=== PATIENT | male | born 1960 | race African-American/Black ===

== ENCOUNTER 2017-02-18 05:16 | Emergency (ER) | payer MEDICAID ==
[~2017-02-18] VITALS: Ht 185.4 cm; Wt 64.0 kg
[2017-02-18] MEDS ORDERED: MORPHINE SULFATE 4 MG/ML CPJ (NOT FOR IM USE) IV STA (07:01)
[2017-02-18] MEDS ORDERED: ONDANSETRON HCL 4MG/2ML VIAL IV STA ×2 (07:01→08:58)
[2017-02-18] MEDS ORDERED: SODIUM CHLORIDE 0.9% 1,000 ML IV ONE ×2 (07:01→08:58)
[2017-02-18 07:20] LABS: BASOPHILS % 0.5 % (0.0-2.0); LYMPHOCYTES % 12.6 % (20.0-50.0); MEAN CORPUSCULAR HEMOGLOBIN 31.4 pg (28.0-32.0); MEAN CORPUSCULAR VOLUME 90.4 fL (80.0-94.0); MEAN PLATELET VOLUME 7.1 fl (7.4-10.4); MONOCYTES % 4.8 % (2.0-8.0); NEUTROPHILS % 82.1 % (40.0-76.0); PLATELET 215 x1000/uL (130-400); RED BLOOD CELL COUNT 5.09 mill/uL (4.7-6.1); RED CELL DISTRIBUTION WIDTH 13.5 % (11.6-14.6)
[2017-02-18 07:28] LABS: PROTHROMBIN TIME 10.7 sec
[2017-02-18 07:36] LABS: CARBON DIOXIDE 29 mEq/L (21-32); CHLORIDE 99 mEq/L (98-107); ETHANOL BLOOD < 10 mg/dL
[2017-02-18 08:38] LABS: GLUCOSE URINE NEGATIVE (NEGATIVE); KETONES URINE 1+ (NEGATIVE); LEUKOCYTE ESTERASE URINE NEGATIVE (NEGATIVE); NITRITE URINE NEGATIVE (NEGATIVE); OCCULT BLOOD URINE NEGATIVE (NEGATIVE); PH URINE 7.5 (4.5-8.0); PROTEIN URINE TRACE (NEGATIVE); SPECIFIC GRAVITY URINE 1.016 (1.005-1.030)
[2017-02-18 08:39] LABS: CLARITY URINE CLEAR (CLEAR); COLOR URINE PALE YELLOW (YELLOW)
[2017-02-18] MEDS ORDERED: FAMOTIDINE 20MG/2ML VIAL IV STA (08:58)
[2017-02-18 09:17] LABS: *AMPHETAMINES SCREEN URINE NEGATIVE (NEGATIVE); *BARBITURATES SCREEN URINE NEGATIVE (NEGATIVE); *BENZODIAZEPINES SCREEN URINE NEGATIVE (NEGATIVE); *COCAINE SCREEN URINE NEGATIVE (NEGATIVE); CANNABINOID URINE SCREEN PRESUMTIVE POSITIVE (NEGATIVE); METHADONE URINE SCREEN NEGATIVE (NEGATIVE); OPIATES URINE SCREEN PRESUMTIVE POSITIVE (NEGATIVE); PHENCYCLIDINE URINE SCREEN NEGATIVE (NEGATIVE)
[2017-02-18] MEDS ORDERED: MAGNESIUM/ALUMINUM HYDROXIDE/SIMETHICONE 30ML UDC PO STA (10:01)
[2017-02-18 10:50] VITALS: BP 166/82
== END 2017-02-18 11:09 | disposition home or self-care (01) ==
LOC: ER 07:18
DX: R10.11 Right upper quadrant pain (principal); R11.0 Nausea; I10 Essential (primary) hypertension; F17.210 Nicotine dependence, cigarettes, uncomplicated
CPT/HCPCS: 36415; 71010; 76705; 80053; 80305; 81001; 83690; 85025; 85610; 93005; 96361; 96374; 96375; 96376; 99285; G0482; J2270; J2405; J3490; J7030

== ENCOUNTER 2018-01-02 19:47 | Emergency (ER) | payer MEDICAID ==
[~2018-01-02] VITALS: Ht 185.4 cm; Wt 81.0 kg
[2018-01-02] MEDS ORDERED: KETOROLAC 30MG/ML VIAL IV STA (21:09)
[2018-01-02] MEDS ORDERED: SODIUM CHLORIDE 0.9% 1,000 ML IV ONE (21:09)
[2018-01-02 21:59] LABS: BASOPHILS % 0.5 % (0.0-2.0); EOSINOPHILS % 0.2 % (0.0-5.0); HEMATOCRIT. 44.4 % (42.0-52.0); HEMOGLOBIN. 15.2 g/dL (14.0-18.0); LYMPHOCYTES % 23.5 % (20.0-50.0); MEAN CORPUSCULAR HEMOGLOBIN 30.8 pg (28.0-32.0); MEAN CORPUSCULAR VOLUME 90.1 fL (80.0-94.0); MEAN PLATELET VOLUME 7.2 fl (7.4-10.4); MONOCYTES % 8.1 % (2.0-8.0); NEUTROPHILS % 67.7 % (40.0-76.0); PLATELET 212 x1000/uL (130-400); RED BLOOD CELL COUNT 4.92 mill/uL (4.7-6.1); RED CELL DISTRIBUTION WIDTH 13.6 % (11.6-14.6)
[2018-01-02 22:01] LABS: CHLORIDE 100 mEq/L (98-107)
[2018-01-02 22:07] LABS: ETHANOL BLOOD < 10 mg/dL
[2018-01-03] MEDS ORDERED: MORPHINE SULFATE 4 MG/ML CPJ (NOT FOR IM USE) IV STA (00:09)
[2018-01-03] MEDS ORDERED: ONDANSETRON HCL 4MG/2ML VIAL IV STA (00:09)
[2018-01-03 00:40] VITALS: BP 179/100
== END 2018-01-03 01:00 | disposition home or self-care (01) ==
LOC: ER 01-03 00:52
DX: R10.13 Epigastric pain (principal); I10 Essential (primary) hypertension; F17.200 Nicotine dependence, unspecified, uncomplicated; F12.10 Cannabis abuse, uncomplicated; R11.2 Nausea with vomiting, unspecified; Z98.890 Other specified postprocedural states
CPT/HCPCS: 36415; 74176; 80053; 83690; 85025; 96361; 96374; 96375; 99285; G0482; J1885; J2270; J2405; J7030; Z7610

== ENCOUNTER 2018-11-21 11:05 | Inpatient (IN) | payer MEDICAID ==
[~2018-11-21] VITALS: Ht 185.4 cm; Wt 59.4 kg
[2018-11-21] MEDS ORDERED: CLONIDINE 0.2MG TABLET PO ONE (11:45)
[2018-11-21] MEDS ORDERED: KETOROLAC 15MG/ML VIAL IV ONE (12:15)
[2018-11-21 12:25] LABS: CHLORIDE 103 mEq/L (98-107)
[2018-11-21 12:28] LABS: BASOPHILS % 1.3 % (0.0-2.0); EOSINOPHILS % 1.1 % (0.0-5.0); HEMATOCRIT. 40.5 % (42.0-52.0); HEMOGLOBIN. 13.5 g/dL (14.0-18.0); MEAN CORPUSCULAR HEMOGLOBIN 30.4 pg (28.0-32.0); MEAN CORPUSCULAR VOLUME 91.3 fL (80.0-94.0); MEAN PLATELET VOLUME 7.2 fl (7.4-10.4); MONOCYTES % 8.7 % (2.0-8.0); NEUTROPHILS % 52.9 % (40.0-76.0); PLATELET 215 x1000/uL (130-400); RED BLOOD CELL COUNT 4.44 mill/uL (4.7-6.1); RED CELL DISTRIBUTION WIDTH 13.7 % (11.6-14.6)
[2018-11-21 12:29] LABS: PARTIAL THROMBOPLASTIN TIME 26.7 sec (23.4-31.0)
[2018-11-21] MEDS ORDERED: ACETAMINOPHEN 325MG TABLET PO PRN (13:45)
[2018-11-21] MEDS ORDERED: HYDRALAZINE 20MG/ML VIAL IV ONE ×2 (13:45)
[2018-11-21] MEDS ORDERED: KETOROLAC 30MG/ML VIAL IV PRN (13:45)
[2018-11-21] MEDS ORDERED: ONDANSETRON HCL 4MG/2ML INJ IV PRN (13:45)
[2018-11-21] MEDS ORDERED: ASPIRIN 325MG EC TABLET PO ONE (13:45)
[2018-11-21] MEDS ORDERED: HYDROCODONE/ACETAMINOPHEN 5/325MG TABLET PO PRN (14:15)
[2018-11-21 16:15] VITALS: BP 156/79
[2018-11-21 17:30] LABS: *AMPHETAMINES SCREEN URINE NEGATIVE (NEGATIVE); *BARBITURATES SCREEN URINE NEGATIVE (NEGATIVE); *BENZODIAZEPINES SCREEN URINE NEGATIVE (NEGATIVE); *COCAINE SCREEN URINE NEGATIVE (NEGATIVE); METHADONE URINE SCREEN NEGATIVE (NEGATIVE)
[2018-11-21 17:31] LABS: CANNABINOID URINE SCREEN PRESUMTIVE POSITIVE (NEGATIVE); OPIATES URINE SCREEN NEGATIVE (NEGATIVE); PHENCYCLIDINE URINE SCREEN NEGATIVE (NEGATIVE)
[2018-11-21] MEDS: LOSARTAN POTASSIUM 100 MG TABLET PO SCH (18:16)
[2018-11-21 20:10] VITALS: BP 164/85
[2018-11-21] MEDS: DILTIAZEM HCL 60MG TABLET PO SCH (20:24)
[2018-11-21] MEDS ORDERED: AMLODIPINE 5MG TABLET PO SCH (21:00)
[2018-11-21] MEDS ORDERED: ZOLPIDEM TARTRATE 5MG TABLET PO PRN (21:00)
[2018-11-21] MEDS: HYDRALAZINE HCL 50MG TABLET PO SCH (21:26)
[2018-11-21 23:58] VITALS: BP 135/74
[2018-11-22] MEDS: DILTIAZEM HCL 60MG TABLET PO SCH ×2 (03:47→09:43)
[2018-11-22 04:00] VITALS: BP 171/92
[2018-11-22 05:42] LABS: BASOPHILS % 1.3 % (0.0-2.0); EOSINOPHILS % 3.4 % (0.0-5.0); HEMATOCRIT. 42.9 % (42.0-52.0); HEMOGLOBIN. 14.3 g/dL (14.0-18.0); LYMPHOCYTES % 39.4 % (20.0-50.0); MEAN CORPUSCULAR HEMOGLOBIN 30.4 pg (28.0-32.0); MEAN CORPUSCULAR VOLUME 91.3 fL (80.0-94.0); MEAN PLATELET VOLUME 7.1 fl (7.4-10.4); MONOCYTES % 10.3 % (2.0-8.0); NEUTROPHILS % 45.6 % (40.0-76.0); PLATELET 223 x1000/uL (130-400); RED CELL DISTRIBUTION WIDTH 14.1 % (11.6-14.6)
[2018-11-22 06:02] LABS: CHLORIDE 105 mEq/L (98-107)
[2018-11-22] MEDS: CLONIDINE 0.1MG TABLET PO PRN ×2 (07:22→16:15)
[2018-11-22 08:00] VITALS: BP 125/72
[2018-11-22] MEDS: HYDRALAZINE HCL 50MG TABLET PO SCH (09:43)
[2018-11-22] MEDS: LOSARTAN POTASSIUM 100 MG TABLET PO SCH (09:43)
[2018-11-22 12:00] VITALS: BP 142/83
[2018-11-22] MEDS ORDERED: DILTIAZEM HCL 300MG CAPSULE SR 24HR PO SCH (12:15)
[2018-11-22 16:00] VITALS: BP 165/92
[2018-11-22 16:45] VITALS: BP 145/85
[2018-11-22] MEDS ORDERED: IBUPROFEN 800MG TABLET PO SCH (17:50)
== END 2018-11-22 16:50 | disposition home or self-care (01) | DRG 347 ==
LOC: ER 11:05 → EDBEDREQ 13:13 → 6WST 13:38 → EDBEDREQTM 13:40 → EDBEDREQ 13:40 → ENRESERV 15:27
PROVIDERS: ADMIT Internal Medicine; ATTEND Internal Medicine
DX: M48.02 Spinal stenosis, cervical region (principal); M50.223 Other cervical disc displacement at C6-C7 level; I10 Essential (primary) hypertension; D64.9 Anemia, unspecified; F17.200 Nicotine dependence, unspecified, uncomplicated; F10.10 Alcohol abuse, uncomplicated; F12.90 Cannabis use, unspecified, uncomplicated; I16.0 Hypertensive urgency; J44.9 Chronic obstructive pulmonary disease, unspecified; Z86.73 Personal history of transient ischemic attack (TIA), and cerebral infarction without residual deficits; Z91.14 Patient's other noncompliance with medication regimen; Z91.19 Patient's noncompliance with other medical treatment and regimen; Z71.6 Tobacco abuse counseling; Z71.41 Alcohol abuse counseling and surveillance of alcoholic
CPT/HCPCS: 36415; 71045; 72141; 80048; 80061; 80305; 83880; 84443; 84484; 93005; 93306; 93970; 96374; 96375; 97161; 99285; J0360; J1885

== ENCOUNTER 2019-01-09 12:58 | Emergency (ER) | payer MEDICAID ==
[~2019-01-09] VITALS: Ht 185.4 cm; Wt 63.6 kg
[2019-01-09] MEDS ORDERED: SODIUM CHLORIDE 0.9% 1,000 ML IV ONE (15:25)
[2019-01-09] MEDS ORDERED: KETOROLAC 30MG/ML VIAL IV STA (15:25)
[2019-01-09] MEDS ORDERED: ONDANSETRON HCL 4MG/2ML INJ IV STA (15:25)
[2019-01-09 15:58] LABS: CLARITY URINE CLOUDY (CLEAR); COLOR URINE YELLOW (YELLOW); KETONES URINE NEGATIVE (NEGATIVE); LEUKOCYTE ESTERASE URINE 2+ (NEGATIVE); NITRITE URINE POSITIVE (NEGATIVE); OCCULT BLOOD URINE 3+ (NEGATIVE); PROTEIN URINE 1+ (NEGATIVE); SPECIFIC GRAVITY URINE 1.015 (1.005-1.030); UROBILINOGEN URINE 0.2 E.U./dL (0.2-1.0)
[2019-01-09 16:24] LABS: HEMATOCRIT. 37.3 % (42.0-52.0); HEMOGLOBIN. 12.8 g/dL (14.0-18.0); MEAN CORPUSCULAR VOLUME 90.5 fL (80.0-94.0); MEAN PLATELET VOLUME 6.6 fl (7.4-10.4); PLATELET 213 x1000/uL (130-400); RED BLOOD CELL COUNT 4.12 mill/uL (4.7-6.1); RED CELL DISTRIBUTION WIDTH 13.9 % (11.6-14.6)
[2019-01-09 16:31] LABS: CHLORIDE 100 mEq/L (98-107); PROTHROMBIN TIME 10.2 sec (9.6-11.0)
[2019-01-09 17:30] LABS: PLATELET ESTIMATE NORMAL
[2019-01-09] MEDS ORDERED: LIDOCAINE HCL/PF 1% 10 MG/ML 5ML VIAL IJ NR (19:00)
[2019-01-09] MEDS ORDERED: AZITHROMYCIN 500 MG TABLET PO NR (19:00)
[2019-01-09] MEDS ORDERED: CEFTRIAXONE SODIUM 250 MG/VIAL IM NR (19:00)
[2019-01-09 21:43] VITALS: BP 158/77
[2019-01-09] MEDS ORDERED: HYDROCODONE/ACETAMINOPHEN 5/325MG TABLET PO ONE (21:45)
== END 2019-01-09 21:45 | disposition home or self-care (01) ==
LOC: ER 12:58
DX: N50.82 Scrotal pain (principal); N45.1 Epididymitis; K40.90 Unilateral inguinal hernia, without obstruction or gangrene, not specified as recurrent; N39.0 Urinary tract infection, site not specified; I11.0 Hypertensive heart disease with heart failure; I50.9 Heart failure, unspecified; F12.10 Cannabis abuse, uncomplicated; F17.290 Nicotine dependence, other tobacco product, uncomplicated
CPT/HCPCS: 36415; 74176; 76870; 80053; 81003; 83690; 85025; 85610; 87077; 87086; 87186; 93976; 96372; 96374; 96375; 99284; J0696; J1885; J2405; J3490; J7030

== ENCOUNTER 2020-02-28 13:40 | Inpatient (IN) | payer MEDICAID ==
[~2020-02-28] VITALS: Ht 185.4 cm; Wt 61.2 kg
[2020-02-28] MEDS ORDERED: ONDANSETRON HCL 4MG/2ML INJ IV STA ×2 (13:55→16:03)
[2020-02-28] MEDS ORDERED: MORPHINE SULFATE 4 MG/ML CPJ (NOT FOR IM USE) IV STA ×2 (13:55→16:03)
[2020-02-28] MEDS ORDERED: ASPIRIN 81MG TABLET PO ONE ×2 (14:00→16:15)
[2020-02-28 14:36] LABS: BASOPHILS % 0.7 % (0.0-2.0); EOSINOPHILS % 0.5 % (0.0-5.0); HEMOGLOBIN. 13.7 g/dL (14.0-18.0); LYMPHOCYTES % 19.1 % (20.0-50.0); MEAN CORPUSCULAR HEMOGLOBIN 32.1 pg (28.0-32.0); MEAN CORPUSCULAR VOLUME 93.7 fL (80.0-94.0); MONOCYTES % 6.6 % (2.0-8.0); NEUTROPHILS % 73.1 % (40.0-76.0); RED BLOOD CELL COUNT 4.26 mill/uL (4.7-6.1); RED CELL DISTRIBUTION WIDTH 13.3 % (11.6-14.6)
[2020-02-28 14:42] LABS: CHLORIDE 102 mEq/L (98-107)
[2020-02-28 15:14] LABS: PLATELET 170 x1000/uL (130-400)
[2020-02-28 16:22] LABS: CLARITY URINE CLEAR (CLEAR); COLOR URINE YELLOW (YELLOW); KETONES URINE NEGATIVE (NEGATIVE); LEUKOCYTE ESTERASE URINE NEGATIVE (NEGATIVE); NITRITE URINE NEGATIVE (NEGATIVE); OCCULT BLOOD URINE NEGATIVE (NEGATIVE); PH URINE 5.5 (4.5-8.0); PROTEIN URINE NEGATIVE (NEGATIVE); SPECIFIC GRAVITY URINE 1.017 (1.005-1.030); UROBILINOGEN URINE 0.2 E.U./dL (0.2-1.0)
[2020-02-28 16:39] LABS: *AMPHETAMINES SCREEN URINE NEGATIVE (NEGATIVE); *BARBITURATES SCREEN URINE NEGATIVE (NEGATIVE); *BENZODIAZEPINES SCREEN URINE NEGATIVE (NEGATIVE); *COCAINE SCREEN URINE NEGATIVE (NEGATIVE)
[2020-02-28 16:40] LABS: CANNABINOID URINE SCREEN PRESUMTIVE POSITIVE (NEGATIVE); METHADONE URINE SCREEN NEGATIVE (NEGATIVE); OPIATES URINE SCREEN PRESUMTIVE POSITIVE (NEGATIVE); PHENCYCLIDINE URINE SCREEN NEGATIVE (NEGATIVE)
[2020-02-28] MEDS ORDERED: HYDRALAZINE HCL 10MG TABLET PO ONE (18:00)
[2020-02-28] MEDS: AMLODIPINE 5MG TABLET PO SCH (20:36)
[2020-02-28] MEDS ORDERED: CLONIDINE 0.2MG TABLET PO PRN (20:45)
[2020-02-28] MEDS: METOPROLOL TARTRATE 50MG TABLET PO SCH (21:29)
[2020-02-28] MEDS: HYDROCODONE/ACETAMINOPHEN 5/325MG TABLET PO PRN (22:38)
[2020-02-28 23:58] VITALS: BP 171/102
[2020-02-29] VITALS: BP 171/102
[2020-02-29] MEDS ORDERED: ACETAMINOPHEN 325MG TABLET PO PRN
[2020-02-29] MEDS ORDERED: GUAIFENESIN 200MG/10ML SUGAR FREE UDC PO PRN
[2020-02-29] MEDS ORDERED: DOCUSATE SODIUM 100MG CAPSULE PO PRN
[2020-02-29] MEDS ORDERED: NA PHOS,M-B/NA PHOS,DI-BA ENEMA 118ML PR PRN
[2020-02-29] MEDS ORDERED: IPRATROPIUM/ALBUTEROL 0.5-3(2.5)MG/3ML NEB NEB PRN
[2020-02-29] MEDS ORDERED: DIPHENHYDRAMINE 50MG/ML VIAL IV PRN
[2020-02-29] MEDS ORDERED: MAGNESIUM/ALUMINUM HYDROXIDE/SIMETHICONE 30ML UDC PO PRN
[2020-02-29] MEDS ORDERED: ONDANSETRON HCL 4MG/2ML INJ IV PRN
[2020-02-29] MEDS: CLONIDINE 0.1MG TABLET PO PRN ×3 (00:20→18:08)
[2020-02-29] MEDS: MORPHINE SULFATE 2 MG/ML CPJ (NOT FOR IM USE) IV PRN ×3 (00:21→20:06)
[2020-02-29 04:00] VITALS: BP 166/98
[2020-02-29 05:57] LABS: BASOPHILS % 0.5 % (0.0-2.0); EOSINOPHILS % 0.2 % (0.0-5.0); HEMATOCRIT. 39.4 % (42.0-52.0); HEMOGLOBIN. 13.1 g/dL (14.0-18.0); LYMPHOCYTES % 18.7 % (20.0-50.0); MEAN CORPUSCULAR HEMOGLOBIN 31.1 pg (28.0-32.0); MEAN CORPUSCULAR VOLUME 93.7 fL (80.0-94.0); MEAN PLATELET VOLUME 7.5 fl (7.4-10.4); MONOCYTES % 9.7 % (2.0-8.0); NEUTROPHILS % 70.9 % (40.0-76.0); PLATELET 236 x1000/uL (130-400); RED BLOOD CELL COUNT 4.21 mill/uL (4.7-6.1); RED CELL DISTRIBUTION WIDTH 13.4 % (11.6-14.6)
[2020-02-29 06:08] LABS: CHLORIDE 99 mEq/L (98-107)
[2020-02-29 06:19] LABS: HDL CHOLESTEROL 93 mg/dL (40-59)
[2020-02-29 06:20] LABS: LDL CHOLESTEROL 25 mg/dL (5-100)
[2020-02-29 06:22] LABS: T4 FREE 0.95 ng/dL (0.76-1.46)
[2020-02-29] MEDS: HYDROCODONE/ACETAMINOPHEN 5/325MG TABLET PO PRN (06:25)
[2020-02-29] MEDS ORDERED: CLONIDINE 0.3MG TABLET PO PRN (07:45)
[2020-02-29 08:00] VITALS: BP 119/69
[2020-02-29] MEDS: ASPIRIN 81MG EC TABLET PO SCH (08:33)
[2020-02-29] MEDS: AMLODIPINE 5MG TABLET PO SCH (08:33)
[2020-02-29] MEDS: METOPROLOL TARTRATE 50MG TABLET PO SCH ×2 (08:33→20:08)
[2020-02-29] MEDS: ENOXAPARIN 40MG/0.4ML SYR SUBCUT SCH (08:34)
[2020-02-29 12:00] VITALS: BP 150/94
[2020-02-29] MEDS ORDERED: LORAZEPAM 2MG/ML CPJ IV PRN ×2 (15:30)
[2020-02-29] MEDS ORDERED: ALBUTEROL 6.7GM HFA INHALER ORI PRN (15:30)
[2020-02-29] MEDS: PREDNISONE 20MG TABLET PO SCH (15:51)
[2020-02-29] MEDS: FOLIC ACID/VITAMIN B COMP W-C TABLET PO SCH (15:51)
[2020-02-29] MEDS: THIAMINE HCL 100MG TABLET PO SCH (15:51)
[2020-02-29] MEDS: MULTIVITAMINS,THER W-MINERALS TABLET PO SCH (15:51)
[2020-02-29 16:00] VITALS: BP 167/103
[2020-02-29 18:00] VITALS: BP 152/89
[2020-02-29 19:48] LABS: ETHANOL BLOOD < 10 mg/dL
[2020-02-29 19:55] LABS: CREATINE KINASE 55 IU/L (39-308)
[2020-02-29 19:56] LABS: CREATINE KINASE MB FRACTION < 1.0 ng/mL (0.5-3.6)
[2020-02-29 23:51] LABS: CREATINE KINASE MB FRACTION 1.2 ng/mL (0.5-3.6)
[2020-03-01] VITALS: BP 166/110
[2020-03-01] MEDS: CLONIDINE 0.1MG TABLET PO PRN ×2 (01:49→07:01)
[2020-03-01] MEDS: MORPHINE SULFATE 2 MG/ML CPJ (NOT FOR IM USE) IV PRN ×5 (02:26→20:27)
[2020-03-01 04:00] VITALS: BP_SYST 177; BP_SYST 192; BP_DIAS 117; BP_DIAS 90
[2020-03-01 08:00] VITALS: BP 167/105
[2020-03-01] MEDS: MULTIVITAMINS,THER W-MINERALS TABLET PO SCH (09:13)
[2020-03-01] MEDS: FOLIC ACID/VITAMIN B COMP W-C TABLET PO SCH (09:13)
[2020-03-01] MEDS: ASPIRIN 81MG EC TABLET PO SCH (09:13)
[2020-03-01] MEDS: THIAMINE HCL 100MG TABLET PO SCH (09:13)
[2020-03-01] MEDS: ENOXAPARIN 40MG/0.4ML SYR SUBCUT SCH (09:13)
[2020-03-01] MEDS: AMLODIPINE 5MG TABLET PO SCH (09:13)
[2020-03-01] MEDS: PREDNISONE 20MG TABLET PO SCH (09:14)
[2020-03-01] MEDS: METOPROLOL TARTRATE 50MG TABLET PO SCH ×2 (09:14→20:26)
[2020-03-01] MEDS: IBUPROFEN 600MG TABLET PO SCH ×3 (09:15→22:47)
[2020-03-01 11:27] LABS: CREATINE KINASE 47 IU/L (39-308)
[2020-03-01] MEDS: HYDROCODONE/ACETAMINOPHEN 5/325MG TABLET PO PRN (11:28)
[2020-03-01] MEDS: OMEPRAZOLE 20MG CAPSULE EXTENDED RELEASE PO SCH (11:28)
[2020-03-01 11:29] LABS: CREATINE KINASE MB FRACTION < 1.0 ng/mL (0.5-3.6)
[2020-03-01 12:00] VITALS: BP 149/96
[2020-03-01] MEDS: AMLODIPINE 10MG TABLET PO SCH ×2 (13:19→13:21)
[2020-03-01] MEDS: NICOTINE 14MG PATCH TD SCH (13:20)
[2020-03-01] MEDS ORDERED: IPRATROPIUM/ALBUTEROL 0.5-3(2.5)MG/3ML NEB HHN PRN (15:15)
[2020-03-01 16:00] VITALS: BP 134/94
[2020-03-01 20:00] VITALS: BP 159/100
[2020-03-01] MEDS: FLUTICASONE PROPIONATE 50MCG/SPRAY BOTTLE BOTHNSTRLS SCH (20:25)
[2020-03-01] MEDS: GUAIFENESIN 600MG ER TABLET PO SCH (20:26)
[2020-03-01] MEDS: IPRATROPIUM/ALBUTEROL 0.5-3(2.5)MG/3ML NEB HHN SCH (23:58)
[2020-03-01] MEDS: BUDESONIDE 0.5MG/2ML NEB HHN SCH (23:58)
[2020-03-02] VITALS: BP 174/102
[2020-03-02] MEDS: MORPHINE SULFATE 2 MG/ML CPJ (NOT FOR IM USE) IV PRN ×2 (01:52→06:18)
[2020-03-02 03:40] VITALS: BP 129/96
[2020-03-02] MEDS: IBUPROFEN 600MG TABLET PO SCH (05:03)
[2020-03-02] MEDS: CLONIDINE 0.1MG TABLET PO PRN (06:18)
[2020-03-02 08:00] VITALS: BP 170/104
[2020-03-02] MEDS: MULTIVITAMINS,THER W-MINERALS TABLET PO SCH (10:12)
[2020-03-02] MEDS: NICOTINE 14MG PATCH TD SCH (10:12)
[2020-03-02] MEDS: THIAMINE HCL 100MG TABLET PO SCH (10:13)
[2020-03-02] MEDS: OMEPRAZOLE 20MG CAPSULE EXTENDED RELEASE PO SCH (10:13)
[2020-03-02] MEDS: PREDNISONE 20MG TABLET PO SCH (10:13)
[2020-03-02] MEDS: AMLODIPINE 10MG TABLET PO SCH (10:13)
[2020-03-02] MEDS: FOLIC ACID/VITAMIN B COMP W-C TABLET PO SCH (10:13)
[2020-03-02] MEDS: ASPIRIN 81MG EC TABLET PO SCH (10:13)
[2020-03-02] MEDS: METOPROLOL TARTRATE 50MG TABLET PO SCH (10:14)
[2020-03-02] MEDS: GUAIFENESIN 600MG ER TABLET PO SCH (10:19)
[2020-03-02] MEDS: ENOXAPARIN 40MG/0.4ML SYR SUBCUT SCH (10:19)
[2020-03-02] MEDS: FLUTICASONE PROPIONATE 50MCG/SPRAY BOTTLE BOTHNSTRLS SCH (10:19)
[2020-03-02] MEDS: BUDESONIDE 0.5MG/2ML NEB HHN SCH (10:20)
[2020-03-02] MEDS: IPRATROPIUM/ALBUTEROL 0.5-3(2.5)MG/3ML NEB HHN SCH ×2 (10:22→14:35)
[2020-03-02 11:45] VITALS: BP 132/96
[2020-03-02 12:00] VITALS: BP 151/102
== END 2020-03-02 14:30 | disposition home or self-care (01) | DRG 140 ==
LOC: ER 13:40 → 7WST 15:29 → ENRESERV 19:00 → 8WST 02-29 19:48
PROVIDERS: ADMIT Internal Medicine; ATTEND Internal Medicine
DX: J44.1 Chronic obstructive pulmonary disease with (acute) exacerbation (principal); J96.00 Acute respiratory failure, unspecified whether with hypoxia or hypercapnia; I31.9 Disease of pericardium, unspecified; F12.90 Cannabis use, unspecified, uncomplicated; F10.10 Alcohol abuse, uncomplicated; M48.02 Spinal stenosis, cervical region; E78.5 Hyperlipidemia, unspecified; D72.810 Lymphocytopenia; F17.210 Nicotine dependence, cigarettes, uncomplicated; I11.0 Hypertensive heart disease with heart failure; I50.9 Heart failure, unspecified; Z20.828 Contact with and (suspected) exposure to other viral communicable diseases; Z82.49 Family history of ischemic heart disease and other diseases of the circulatory system; Z79.899 Other long term (current) drug therapy; R07.89 Other chest pain
CPT/HCPCS: 36415; 71045; 71275; 80053; 80061; 80305; 80320; 81003; 82550; 82553; 83036; 83880; 84439; 84443; 84484; 85025; 85379; 87635; 93005; 93306; 93970; 94640; 96374; 99285; J1650; J2270; J2405; J7512; J7626; G0480

== ENCOUNTER 2021-11-21 12:07 | Inpatient (IN) | payer MEDICAID, OTHER ==
[2021-11-21] VITALS (31 sets, daily range): BP systolic 106–171; BP diastolic 78–113
[~2021-11-21] VITALS: Ht 183.1 cm; Wt 60.8 kg
[~2021-11-21 12:07] MED LIST: HEPARIN 1000 UNITS/ML 10ML ONE
[2021-11-21] MEDS ORDERED: MORPHINE SULFATE 4 MG/ML CPJ (NOT FOR IM USE) IV ONE (12:30)
[2021-11-21 12:40] LABS: BASOPHILS % 0.9 % (0.0-2.0); EOSINOPHILS % 0.8 % (0.0-5.0); HEMATOCRIT. 41.2 % (42.0-52.0); HEMOGLOBIN. 13.9 g/dL (14.0-18.0); MEAN CORPUSCULAR HEMOGLOBIN 29.9 pg (28.0-32.0); MEAN CORPUSCULAR VOLUME 88.9 fL (80.0-94.0); MEAN PLATELET VOLUME 6.4 fl (7.4-10.4); NEUTROPHILS % 76.3 % (40.0-76.0); PLATELET 304 x1000/uL (130-400); RED BLOOD CELL COUNT 4.63 mill/uL (4.7-6.1); RED CELL DISTRIBUTION WIDTH 13.4 % (11.6-14.6)
[2021-11-21] MEDS ORDERED: LIDOCAINE HCL/PF 2% 20MG/ML 5 ML/VIAL ONE ×2 (12:43→12:44)
[2021-11-21] MEDS ORDERED: VERAPAMIL HCL 2.5 MG/1 ML 2ML VIAL IV ONE (12:47)
[2021-11-21 12:54] LABS: CHLORIDE 90 mEq/L (98-107)
[2021-11-21] MEDS ORDERED: FENTANYL CITRATE/PF 50MCG/ML 2ML VIAL ONE (12:56)
[2021-11-21] MEDS ORDERED: IOHEXOL-300 100 ML BOTTLE ONE (12:58)
[2021-11-21] MEDS ORDERED: IODIXANOL 320MG/ML 100 ML BOTTLE IV ONE (12:58)
[2021-11-21 13:03] LABS: ETHANOL BLOOD < 10 mg/dL
[2021-11-21] MEDS ORDERED: HYDRALAZINE 20MG/ML VIAL ONE (13:08)
[2021-11-21] MEDS ORDERED: IODIXANOL 320 MG/ML 150ML BOTTLE IV ONE (13:16)
[2021-11-21] MEDS ORDERED: FUROSEMIDE 20MG/2ML VIAL ONE (13:21)
[2021-11-21] MEDS ORDERED: IOHEXOL-350 100 ML BOTTLE ONE (13:22)
[2021-11-21] MEDS ORDERED: NITROGLYCERIN 50MG PREMIX 250 ML IV ONE (13:24)
[2021-11-21] MEDS ORDERED: ASPIRIN 325MG TABLET ONE (13:44)
[2021-11-21] MEDS ORDERED: CLOPIDOGREL 75MG TABLET ONE (13:44)
[2021-11-21] MEDS ORDERED: ATROPINE SULFATE 1MG/10ML SYR IV PRN (14:30)
[2021-11-21] MEDS ORDERED: NALOXONE HCL 0.4MG/ML VIAL IV PRN (15:00)
[2021-11-21] MEDS ORDERED: DIPHENHYDRAMINE 50MG/ML VIAL IV PRN (15:00)
[2021-11-21] MEDS ORDERED: NITROGLYCERIN 50MG PREMIX 250 ML IV NR (15:15)
[2021-11-21 15:22] LABS: BG BASE EXCESS 4.6 mmol/L (-2.0-2.0); BG CARBOXYHEMOGLOBIN 2.3 % (0.5-1.5); BG DEOXYHEMOGLOBIN 0.4 % (0.0-5.0); BG FRACTION INSPIRED OXYGEN 70; BG HCO3 ACT 29.4 mmol/L (22.0-26.0); BG METHEMOGLOBIN 0.1 % (0.0-1.5); BG OXYGEN SATURATION 99.6 % (92.0-98.5); BG OXYHEMOGLOBIN 97.2 % (94.0-97.0); BG PCO2 44.3 mmHg (35.0-45.0); BG PO2 292.3 mmHg (75.0-100.0); BG SAMPLE SITE LEFT RADIAL; BG TOTAL HEMOGLOBIN 14.5 g/dL (12.0-18.0); BG TOTAL RESPIRATORY RATE 27 b/min; BG VENT MODE MASK - BIPAP
[2021-11-21] MEDS: AMLODIPINE 10MG TABLET PO SCH (15:27)
[2021-11-21] MEDS ORDERED: METH-774 MT (16:00)
[2021-11-21] MEDS ORDERED: FLUT1BLS3 INH (16:00)
[2021-11-21] MEDS ORDERED: HYDR100T26 PO (16:00)
[2021-11-21] MEDS ORDERED: ALBU90AE2 INH (16:00)
[2021-11-21] MEDS ORDERED: LISI20TA31 PO (16:00)
[2021-11-21] MEDS: IPRATROPIUM/ALBUTEROL 0.5-3(2.5)MG/3ML NEB HHN PRN (17:07)
[2021-11-21] MEDS ORDERED: DEXTROSE 50% WATER 50ML SYRINGE IV PRN (18:00)
[2021-11-21] MEDS ORDERED: PNEUMOCOCCAL 23-VAL P-SAC VAC 0.5 ML IM ONE (18:00)
[2021-11-21] MEDS: BLOOD SUGAR DIAGNOSTIC STRIP TEST SCH ×2 (18:13→21:59)
[2021-11-21] MEDS: INSULIN LISPRO 100 UNITS/ML SUBCUT SCH ×2 (18:18→21:56)
[2021-11-21] MEDS: FUROSEMIDE 40MG/4ML VIAL IVP SCH (18:18)
[2021-11-21] MEDS: ATORVASTATIN CALCIUM 40MG TABLET PO SCH (21:48)
[2021-11-21] MEDS: CLOPIDOGREL 75MG TABLET PO SCH (21:48)
[2021-11-21] MEDS: CLONIDINE 0.1MG TABLET PO PRN (22:59)
[2021-11-22] VITALS (47 sets, daily range): BP systolic 112–161; BP diastolic 71–112
[2021-11-22] MEDS: MORPHINE SULFATE 2 MG/ML CPJ (NOT FOR IM USE) IV PRN ×5 (02:32→21:18)
[2021-11-22] MEDS ORDERED: NITROGLYCERIN 50MG PREMIX 250 ML IV PRN (05:00)
[2021-11-22] MEDS ORDERED: MORPHINE SULFATE 2 MG/ML CPJ (NOT FOR IM USE) IV SCH (05:00)
[2021-11-22] MEDS: FUROSEMIDE 40MG/4ML VIAL IVP SCH ×2 (05:15→17:01)
[2021-11-22 05:38] LABS: BASOPHILS % 0.6 % (0.0-2.0); EOSINOPHILS % 0.9 % (0.0-5.0); HEMATOCRIT. 37.3 % (42.0-52.0); HEMOGLOBIN. 12.9 g/dL (14.0-18.0); LYMPHOCYTES % 14.6 % (20.0-50.0); MEAN CORPUSCULAR HEMOGLOBIN 30.4 pg (28.0-32.0); MEAN CORPUSCULAR VOLUME 88.2 fL (80.0-94.0); MEAN PLATELET VOLUME 6.5 fl (7.4-10.4); MONOCYTES % 10.4 % (2.0-8.0); NEUTROPHILS % 73.5 % (40.0-76.0); PLATELET 312 x1000/uL (130-400); RED BLOOD CELL COUNT 4.23 mill/uL (4.7-6.1); RED CELL DISTRIBUTION WIDTH 12.7 % (11.6-14.6)
[2021-11-22] MEDS: CLONIDINE 0.1MG TABLET PO PRN (05:42)
[2021-11-22 05:52] LABS: CHLORIDE 89 mEq/L (98-107)
[2021-11-22 08:01] LABS: *AMPHETAMINES SCREEN URINE NEGATIVE (NEGATIVE); *BARBITURATES SCREEN URINE NEGATIVE (NEGATIVE); *BENZODIAZEPINES SCREEN URINE NEGATIVE (NEGATIVE); *COCAINE SCREEN URINE NEGATIVE (NEGATIVE); CANNABINOID URINE SCREEN PRESUMTIVE POSITIVE (NEGATIVE); METHADONE URINE SCREEN NEGATIVE (NEGATIVE); OPIATES URINE SCREEN NEGATIVE (NEGATIVE); PHENCYCLIDINE URINE SCREEN NEGATIVE (NEGATIVE)
[2021-11-22] MEDS: BLOOD SUGAR DIAGNOSTIC STRIP TEST SCH ×4 (08:33→21:19)
[2021-11-22] MEDS: CLOPIDOGREL 75MG TABLET PO SCH (08:44)
[2021-11-22] MEDS: METOPROLOL TARTRATE 25MG TABLET PO SCH ×2 (08:44→21:18)
[2021-11-22] MEDS: INSULIN LISPRO 100 UNITS/ML SUBCUT SCH ×4 (08:54→21:19)
[2021-11-22] MEDS: ISOSORBIDE MONONITRATE 60MG TABLET SR 24HR PO SCH (08:54)
[2021-11-22] MEDS: AMLODIPINE 10MG TABLET PO SCH (08:55)
[2021-11-22] MEDS ORDERED: ASPIRIN 81MG TABLET PO SCH (09:00)
[2021-11-22] MEDS: ASPIRIN 325MG TABLET PO SCH ×2 (13:17→17:01)
[2021-11-22] MEDS: COLCHICINE 0.6MG TABLET PO SCH ×2 (13:17→23:48)
[2021-11-22] MEDS: ONDANSETRON HCL 4MG/2ML INJ IV PRN (15:51)
[2021-11-22] MEDS ORDERED: PANTOPRAZOLE 40MG DR TABLET PO ONE (21:00)
[2021-11-22] MEDS: SUCRALFATE 1 G/10 ML UDC PO SCH (21:18)
[2021-11-22] MEDS: ATORVASTATIN CALCIUM 40MG TABLET PO SCH (21:21)
[2021-11-22] MEDS: ACETAMINOPHEN 325MG TABLET PO PRN (23:53)
[2021-11-23] VITALS (58 sets, daily range): BP systolic 73–166; BP diastolic 18–110
[2021-11-23] MEDS: MORPHINE SULFATE 2 MG/ML CPJ (NOT FOR IM USE) IV PRN ×5 (01:50→21:16)
[2021-11-23 05:48] LABS: BASOPHILS % 0.7 % (0.0-2.0); HEMOGLOBIN. 12.1 g/dL (14.0-18.0); LYMPHOCYTES % 13.1 % (20.0-50.0); MEAN CORPUSCULAR HEMOGLOBIN 30.8 pg (28.0-32.0); MEAN CORPUSCULAR VOLUME 89.1 fL (80.0-94.0); MEAN PLATELET VOLUME 6.3 fl (7.4-10.4); MONOCYTES % 13.2 % (2.0-8.0); PLATELET 290 x1000/uL (130-400); RED BLOOD CELL COUNT 3.93 mill/uL (4.7-6.1)
[2021-11-23] MEDS: FUROSEMIDE 40MG/4ML VIAL IVP SCH ×2 (06:04→18:20)
[2021-11-23 06:21] LABS: CHLORIDE 88 mEq/L (98-107)
[2021-11-23] MEDS: IPRATROPIUM/ALBUTEROL 0.5-3(2.5)MG/3ML NEB HHN PRN ×3 (07:43→15:26)
[2021-11-23] MEDS: INSULIN LISPRO 100 UNITS/ML SUBCUT SCH ×4 (08:20→21:00)
[2021-11-23] MEDS: SUCRALFATE 1 G/10 ML UDC PO SCH ×4 (08:32→21:55)
[2021-11-23] MEDS: AMLODIPINE 10MG TABLET PO SCH (08:33)
[2021-11-23] MEDS: METOPROLOL TARTRATE 25MG TABLET PO SCH ×2 (08:33→21:56)
[2021-11-23] MEDS: COLCHICINE 0.6MG TABLET PO SCH ×2 (08:33→21:57)
[2021-11-23] MEDS: PANTOPRAZOLE SODIUM 40 MG/VIAL IV SCH (08:33)
[2021-11-23] MEDS: ASPIRIN 325MG TABLET PO SCH ×4 (08:33→16:53)
[2021-11-23] MEDS: BLOOD SUGAR DIAGNOSTIC STRIP TEST SCH ×4 (08:34→21:16)
[2021-11-23] MEDS: CLOPIDOGREL 75MG TABLET PO SCH (08:34)
[2021-11-23] MEDS: ONDANSETRON HCL 4MG/2ML INJ IV PRN ×2 (11:01→17:58)
[2021-11-23] MEDS ORDERED: SODIUM CHLORIDE 0.9% 1,000 ML IV SCH (14:45)
[2021-11-23 20:37] LABS: INR 1.1; PROTHROMBIN TIME 11.4 sec (9.6-11.0)
[2021-11-23] MEDS ORDERED: DEXT 5%/0.9% NACL 1,000 ML IV SCH (20:45)
[2021-11-23] MEDS: ATORVASTATIN CALCIUM 40MG TABLET PO SCH (21:56)
[2021-11-24] VITALS (65 sets, daily range): BP systolic 106–179; BP diastolic 63–131
[2021-11-24] MEDS: MORPHINE SULFATE 2 MG/ML CPJ (NOT FOR IM USE) IV PRN ×6 (01:22→23:18)
[2021-11-24] MEDS: CLONIDINE 0.1MG TABLET PO PRN (04:08)
[2021-11-24] MEDS: SODIUM CHLORIDE 0.9% 1,000 ML IV SCH ×2 (04:18→09:44)
[2021-11-24 05:43] LABS: BASOPHILS % 1.1 % (0.0-2.0); EOSINOPHILS % 3.9 % (0.0-5.0); HEMATOCRIT. 35.9 % (42.0-52.0); LYMPHOCYTES % 10.3 % (20.0-50.0); MEAN CORPUSCULAR HEMOGLOBIN 29.7 pg (28.0-32.0); MEAN CORPUSCULAR VOLUME 88.6 fL (80.0-94.0); MEAN PLATELET VOLUME 6.5 fl (7.4-10.4); MONOCYTES % 11.1 % (2.0-8.0); NEUTROPHILS % 73.6 % (40.0-76.0); PLATELET 308 x1000/uL (130-400); RED BLOOD CELL COUNT 4.05 mill/uL (4.7-6.1); RED CELL DISTRIBUTION WIDTH 12.8 % (11.6-14.6)
[2021-11-24 05:44] LABS: CHLORIDE 90 mEq/L (98-107)
[2021-11-24 06:05] LABS: INR 1.1; PROTHROMBIN TIME 11.6 sec (9.6-11.0)
[2021-11-24] MEDS: FUROSEMIDE 40MG/4ML VIAL IVP SCH (06:31)
[2021-11-24] MEDS: BLOOD SUGAR DIAGNOSTIC STRIP TEST SCH ×4 (07:50→20:57)
[2021-11-24] MEDS: INSULIN LISPRO 100 UNITS/ML SUBCUT SCH ×4 (08:20→20:57)
[2021-11-24] MEDS: SUCRALFATE 1 G/10 ML UDC PO SCH ×4 (09:20→20:56)
[2021-11-24] MEDS: ASPIRIN 325MG TABLET PO SCH ×3 (09:21→18:27)
[2021-11-24] MEDS: METOPROLOL TARTRATE 25MG TABLET PO SCH ×2 (09:21→20:56)
[2021-11-24] MEDS: ACETAMINOPHEN 325MG TABLET PO PRN (09:22)
[2021-11-24] MEDS: ISOSORBIDE MONONITRATE 60MG TABLET SR 24HR PO SCH (09:22)
[2021-11-24] MEDS: COLCHICINE 0.6MG TABLET PO SCH ×2 (09:24→20:56)
[2021-11-24] MEDS: PANTOPRAZOLE SODIUM 40 MG/VIAL IV SCH (09:24)
[2021-11-24] MEDS: CLOPIDOGREL 75MG TABLET PO SCH (09:24)
[2021-11-24] MEDS: AMLODIPINE 10MG TABLET PO SCH (09:24)
[2021-11-24] MEDS ORDERED: BARIUM SULFATE 176 GM SUSP.RECON ONE (10:01)
[2021-11-24] MEDS ORDERED: BARIUM SULFATE(VOLUMEN) 450 ML ORAL.SUSP ONE (10:01)
[2021-11-24] MEDS ORDERED: SIMETHICONE/SOD BICARB/CIT AC 1 EACH GRAN.EF.PK ONE (10:06)
[2021-11-24] MEDS: ATORVASTATIN CALCIUM 40MG TABLET PO SCH (20:56)
[2021-11-25] VITALS: BP 98/55
[2021-11-25] MEDS: MORPHINE SULFATE 2 MG/ML CPJ (NOT FOR IM USE) IV PRN ×5 (03:37→20:51)
[2021-11-25 04:00] VITALS: BP 139/94
[2021-11-25] MEDS: SODIUM CHLORIDE 0.9% 1,000 ML IV SCH (04:12)
[2021-11-25] MEDS: BLOOD SUGAR DIAGNOSTIC STRIP TEST SCH ×4 (06:23→21:07)
[2021-11-25] MEDS: INSULIN LISPRO 100 UNITS/ML SUBCUT SCH ×4 (06:24→21:00)
[2021-11-25 08:00] VITALS: BP 150/90
[2021-11-25 08:01] LABS: BASOPHILS % 1.1 % (0.0-2.0); EOSINOPHILS % 4.5 % (0.0-5.0); HEMATOCRIT. 34.3 % (42.0-52.0); HEMOGLOBIN. 11.5 g/dL (14.0-18.0); LYMPHOCYTES % 12.5 % (20.0-50.0); MEAN CORPUSCULAR HEMOGLOBIN 29.5 pg (28.0-32.0); MEAN PLATELET VOLUME 6.4 fl (7.4-10.4); NEUTROPHILS % 69.9 % (40.0-76.0); PLATELET 299 x1000/uL (130-400); RED BLOOD CELL COUNT 3.89 mill/uL (4.7-6.1); RED CELL DISTRIBUTION WIDTH 12.7 % (11.6-14.6)
[2021-11-25 08:14] LABS: CHLORIDE 89 mEq/L (98-107)
[2021-11-25] MEDS: ISOSORBIDE MONONITRATE 60MG TABLET SR 24HR PO SCH ×2 (09:00→09:02)
[2021-11-25] MEDS: COLCHICINE 0.6MG TABLET PO SCH ×3 (09:00→21:00)
[2021-11-25] MEDS: ASPIRIN 325MG TABLET PO SCH ×3 (09:01→16:25)
[2021-11-25] MEDS: SUCRALFATE 1 G/10 ML UDC PO SCH ×4 (09:01→21:07)
[2021-11-25] MEDS: PANTOPRAZOLE SODIUM 40 MG/VIAL IV SCH (09:01)
[2021-11-25] MEDS: AMLODIPINE 10MG TABLET PO SCH (09:02)
[2021-11-25] MEDS: CLOPIDOGREL 75MG TABLET PO SCH (09:02)
[2021-11-25] MEDS: METOPROLOL TARTRATE 25MG TABLET PO SCH ×2 (09:02→21:07)
[2021-11-25 12:00] VITALS: BP 130/82
[2021-11-25 16:00] VITALS: BP 147/96
[2021-11-25 20:00] VITALS: BP 135/77
[2021-11-25] MEDS: ATORVASTATIN CALCIUM 40MG TABLET PO SCH (21:06)
[2021-11-26] VITALS: BP 134/88
[2021-11-26] MEDS: MORPHINE SULFATE 2 MG/ML CPJ (NOT FOR IM USE) IV PRN ×5 (01:25→23:42)
[2021-11-26 04:00] VITALS: BP 124/68
[2021-11-26] MEDS: INSULIN LISPRO 100 UNITS/ML SUBCUT SCH ×4 (06:16→21:00)
[2021-11-26] MEDS: BLOOD SUGAR DIAGNOSTIC STRIP TEST SCH ×4 (06:16→21:03)
[2021-11-26 08:00] VITALS: BP 112/92
[2021-11-26 08:05] LABS: CHLORIDE 91 mEq/L (98-107)
[2021-11-26 08:11] LABS: BASOPHILS % 1.3 % (0.0-2.0); EOSINOPHILS % 4.3 % (0.0-5.0); HEMATOCRIT. 36.7 % (42.0-52.0); HEMOGLOBIN. 12.4 g/dL (14.0-18.0); LYMPHOCYTES % 14.3 % (20.0-50.0); MEAN CORPUSCULAR HEMOGLOBIN 29.8 pg (28.0-32.0); MEAN CORPUSCULAR VOLUME 88.6 fL (80.0-94.0); MEAN PLATELET VOLUME 6.6 fl (7.4-10.4); NEUTROPHILS % 66.1 % (40.0-76.0); PLATELET 299 x1000/uL (130-400); RED BLOOD CELL COUNT 4.14 mill/uL (4.7-6.1)
[2021-11-26] MEDS: COLCHICINE 0.6MG TABLET PO SCH ×2 (09:58→21:03)
[2021-11-26] MEDS: ISOSORBIDE MONONITRATE 60MG TABLET SR 24HR PO SCH (09:59)
[2021-11-26] MEDS: METOPROLOL TARTRATE 25MG TABLET PO SCH ×2 (10:00→21:03)
[2021-11-26] MEDS: ASPIRIN 325MG TABLET PO SCH ×3 (10:00→17:37)
[2021-11-26] MEDS: SUCRALFATE 1 G/10 ML UDC PO SCH ×4 (10:01→21:03)
[2021-11-26] MEDS: AMLODIPINE 10MG TABLET PO SCH (10:01)
[2021-11-26] MEDS: PANTOPRAZOLE SODIUM 40 MG/VIAL IV SCH (10:01)
[2021-11-26] MEDS: CLOPIDOGREL 75MG TABLET PO SCH (10:01)
[2021-11-26 16:00] VITALS: BP 118/84
[2021-11-26] MEDS ORDERED: NALOXONE HCL 0.4MG/ML VIAL IV PRN (19:00)
[2021-11-26 20:00] VITALS: BP 118/76
[2021-11-26] MEDS: ATORVASTATIN CALCIUM 40MG TABLET PO SCH (21:03)
[2021-11-27] VITALS: BP 137/85
[2021-11-27 04:00] VITALS: BP 153/103
[2021-11-27] MEDS: MORPHINE SULFATE 2 MG/ML CPJ (NOT FOR IM USE) IV PRN ×4 (04:17→18:10)
[2021-11-27] MEDS: BLOOD SUGAR DIAGNOSTIC STRIP TEST SCH ×5 (06:25→21:00)
[2021-11-27] MEDS: SUCRALFATE 1 G/10 ML UDC PO SCH ×4 (06:25→20:26)
[2021-11-27] MEDS: INSULIN LISPRO 100 UNITS/ML SUBCUT SCH ×5 (07:50→21:00)
[2021-11-27] MEDS ORDERED: HYDROCODONE/ACETAMINOPHEN 5/325MG TABLET PO PRN (08:00)
[2021-11-27] MEDS ORDERED: HYDROCODONE/ACETAMINOPHEN 10/325MG TABLET PO PRN (08:00)
[2021-11-27 08:02] VITALS: BP 146/91
[2021-11-27] MEDS: ASPIRIN 325MG TABLET PO SCH ×4 (08:31→18:09)
[2021-11-27] MEDS: COLCHICINE 0.6MG TABLET PO SCH ×2 (08:31→20:26)
[2021-11-27] MEDS: PANTOPRAZOLE SODIUM 40 MG/VIAL IV SCH ×2 (08:31→18:08)
[2021-11-27] MEDS: METOPROLOL TARTRATE 25MG TABLET PO SCH ×3 (08:32→20:26)
[2021-11-27] MEDS: AMLODIPINE 10MG TABLET PO SCH (08:32)
[2021-11-27] MEDS: CLOPIDOGREL 75MG TABLET PO SCH ×2 (08:32→09:56)
[2021-11-27] MEDS: ISOSORBIDE MONONITRATE 60MG TABLET SR 24HR PO SCH ×2 (08:32→09:56)
[2021-11-27 08:34] LABS: CHLORIDE 92 mEq/L (98-107)
[2021-11-27] MEDS ORDERED: ASPIRIN 81MG TABLET PO SCH (10:15)
[2021-11-27 12:14] LABS: BASOPHILS % 1.5 % (0.0-2.0); EOSINOPHILS % 4.5 % (0.0-5.0); HEMATOCRIT. 36.1 % (42.0-52.0); HEMOGLOBIN. 12.1 g/dL (14.0-18.0); LYMPHOCYTES % 14.1 % (20.0-50.0); MEAN CORPUSCULAR HEMOGLOBIN 29.3 pg (28.0-32.0); MEAN CORPUSCULAR VOLUME 87.5 fL (80.0-94.0); MEAN PLATELET VOLUME 6.3 fl (7.4-10.4); MONOCYTES % 12.1 % (2.0-8.0); NEUTROPHILS % 67.8 % (40.0-76.0); PLATELET 316 x1000/uL (130-400); RED BLOOD CELL COUNT 4.13 mill/uL (4.7-6.1); RED CELL DISTRIBUTION WIDTH 12.8 % (11.6-14.6)
[2021-11-27 12:26] VITALS: BP 143/88
[2021-11-27 12:44] LABS: INR 1.1; PROTHROMBIN TIME 11.7 sec (9.6-11.0)
[2021-11-27] MEDS ORDERED: ONDANSETRON HCL 4MG/2ML INJ ONE (13:27)
[2021-11-27] MEDS ORDERED: DEXAMETHASONE 4MG/ML 1ML VIAL ONE (13:27)
[2021-11-27] MEDS ORDERED: PROPOFOL 200MG/20ML VIAL IV ONE (13:27)
[2021-11-27] MEDS ORDERED: MIDAZOLAM HCL 2 MG/2 ML VIAL ONE (13:28)
[2021-11-27] MEDS ORDERED: FENTANYL CITRATE/PF 50MCG/ML 2ML VIAL ONE (13:29)
[2021-11-27 16:20] VITALS: BP 168/99
[2021-11-27] MEDS: METOCLOPRAMIDE HCL 10MG/2ML VIAL IV SCH ×2 (18:08→21:04)
[2021-11-27 20:00] VITALS: BP 141/87
[2021-11-27] MEDS: ATORVASTATIN CALCIUM 40MG TABLET PO SCH (20:26)
[2021-11-28] VITALS: BP 153/99
[2021-11-28] MEDS: ASPIRIN 325MG TABLET PO SCH ×2 (00:21→06:32)
[2021-11-28] MEDS: MORPHINE SULFATE 2 MG/ML CPJ (NOT FOR IM USE) IV PRN ×6 (00:36→22:21)
[2021-11-28 04:30] VITALS: BP 162/99
[2021-11-28] MEDS: SUCRALFATE 1 G/10 ML UDC PO SCH ×4 (06:32→21:16)
[2021-11-28] MEDS: BLOOD SUGAR DIAGNOSTIC STRIP TEST SCH ×3 (06:32→16:41)
[2021-11-28] MEDS: METOCLOPRAMIDE HCL 10MG/2ML VIAL IV SCH ×4 (06:38→23:51)
[2021-11-28] MEDS: INSULIN LISPRO 100 UNITS/ML SUBCUT SCH ×3 (07:50→17:04)
[2021-11-28 07:52] LABS: BASOPHILS % 0.4 % (0.0-2.0); EOSINOPHILS % 0.4 % (0.0-5.0); HEMATOCRIT. 39.6 % (42.0-52.0); HEMOGLOBIN. 13.5 g/dL (14.0-18.0); LYMPHOCYTES % 15.3 % (20.0-50.0); MEAN CORPUSCULAR HEMOGLOBIN 29.8 pg (28.0-32.0); MEAN CORPUSCULAR VOLUME 87.2 fL (80.0-94.0); MEAN PLATELET VOLUME 6.9 fl (7.4-10.4); MONOCYTES % 9.9 % (2.0-8.0); PLATELET 366 x1000/uL (130-400); RED BLOOD CELL COUNT 4.54 mill/uL (4.7-6.1); RED CELL DISTRIBUTION WIDTH 12.8 % (11.6-14.6)
[2021-11-28 07:58] LABS: CHLORIDE 93 mEq/L (98-107)
[2021-11-28 08:26] VITALS: BP 166/98
[2021-11-28] MEDS: CLOPIDOGREL 75MG TABLET PO SCH (08:40)
[2021-11-28] MEDS: COLCHICINE 0.6MG TABLET PO SCH ×2 (08:40→21:16)
[2021-11-28] MEDS: METOPROLOL TARTRATE 25MG TABLET PO SCH ×2 (08:41→21:17)
[2021-11-28] MEDS: AMLODIPINE 10MG TABLET PO SCH (08:41)
[2021-11-28] MEDS: PANTOPRAZOLE SODIUM 40 MG/VIAL IV SCH ×2 (08:41→17:49)
[2021-11-28] MEDS ORDERED: ASPIRIN 325MG TABLET PO SCH (09:00)
[2021-11-28 11:00] LABS: BG BASE EXCESS 6.4 mmol/L (-2.0-2.0); BG CARBOXYHEMOGLOBIN 0.8 % (0.5-1.5); BG DEOXYHEMOGLOBIN 8.9 % (0.0-5.0); BG FRACTION INSPIRED OXYGEN 21; BG HCO3 ACT 30.9 mmol/L (22.0-26.0); BG METHEMOGLOBIN 0.1 % (0.0-1.5); BG OXYHEMOGLOBIN 90.2 % (94.0-97.0); BG PCO2 43.8 mmHg (35.0-45.0); BG PH 7.466 (7.350-7.450); BG PO2 57.5 mmHg (75.0-100.0); BG SAMPLE SITE RIGHT RADIAL; BG VENT MODE ROOM AIR
[2021-11-28 11:59] VITALS: BP 128/102
[2021-11-28] MEDS: IPRATROPIUM/ALBUTEROL 0.5-3(2.5)MG/3ML NEB HHN SCH ×2 (13:29→21:13)
[2021-11-28 16:30] VITALS: BP 150/97
[2021-11-28 20:00] VITALS: BP 129/78
[2021-11-28] MEDS: ATORVASTATIN CALCIUM 40MG TABLET PO SCH (21:16)
[2021-11-29] VITALS: BP 152/96
[2021-11-29] MEDS: IPRATROPIUM/ALBUTEROL 0.5-3(2.5)MG/3ML NEB HHN SCH ×4 (01:49→21:25)
[2021-11-29] MEDS: MORPHINE SULFATE 2 MG/ML CPJ (NOT FOR IM USE) IV PRN ×5 (03:38→20:30)
[2021-11-29 04:00] VITALS: BP 156/95
[2021-11-29] MEDS: PANTOPRAZOLE 40MG DR TABLET PO SCH ×4 (06:26→20:30)
[2021-11-29] MEDS: SUCRALFATE 1 G/10 ML UDC PO SCH ×4 (06:26→20:30)
[2021-11-29] MEDS: METOCLOPRAMIDE HCL 10MG/2ML VIAL IV SCH ×3 (06:26→16:59)
[2021-11-29] MEDS: BLOOD SUGAR DIAGNOSTIC STRIP TEST SCH ×4 (06:34→20:31)
[2021-11-29 07:39] VITALS: BP 151/94
[2021-11-29] MEDS: INSULIN LISPRO 100 UNITS/ML SUBCUT SCH ×4 (07:50→20:40)
[2021-11-29] MEDS: COLCHICINE 0.6MG TABLET PO SCH ×2 (08:00→20:30)
[2021-11-29] MEDS: METOPROLOL TARTRATE 25MG TABLET PO SCH ×2 (08:00→20:30)
[2021-11-29] MEDS: AMLODIPINE 10MG TABLET PO SCH (08:00)
[2021-11-29] MEDS: CLOPIDOGREL 75MG TABLET PO SCH (08:00)
[2021-11-29] MEDS: ASPIRIN 81MG TABLET PO SCH (08:00)
[2021-11-29 08:14] LABS: EOSINOPHILS % 2.8 % (0.0-5.0); HEMATOCRIT. 38.8 % (42.0-52.0); HEMOGLOBIN. 13.2 g/dL (14.0-18.0); LYMPHOCYTES % 17.4 % (20.0-50.0); MEAN CORPUSCULAR HEMOGLOBIN 29.6 pg (28.0-32.0); MEAN CORPUSCULAR VOLUME 86.8 fL (80.0-94.0); MEAN PLATELET VOLUME 6.7 fl (7.4-10.4); MONOCYTES % 12.6 % (2.0-8.0); NEUTROPHILS % 66.2 % (40.0-76.0); PLATELET 356 x1000/uL (130-400); RED BLOOD CELL COUNT 4.47 mill/uL (4.7-6.1); RED CELL DISTRIBUTION WIDTH 12.7 % (11.6-14.6)
[2021-11-29 08:40] LABS: CHLORIDE 92 mEq/L (98-107)
[2021-11-29 11:36] VITALS: BP 149/91
[2021-11-29 15:34] VITALS: BP 149/84
[2021-11-29 20:00] VITALS: BP 161/74
[2021-11-29] MEDS: CLONIDINE 0.1MG TABLET PO PRN (20:30)
[2021-11-29] MEDS: ATORVASTATIN CALCIUM 40MG TABLET PO SCH (20:31)
[2021-11-30] VITALS: BP 147/91
[2021-11-30] MEDS: METOCLOPRAMIDE HCL 10MG/2ML VIAL IV SCH ×3 (00:44→12:02)
[2021-11-30] MEDS: MORPHINE SULFATE 2 MG/ML CPJ (NOT FOR IM USE) IV PRN ×4 (00:44→15:37)
[2021-11-30] MEDS: IPRATROPIUM/ALBUTEROL 0.5-3(2.5)MG/3ML NEB HHN SCH ×3 (02:11→13:38)
[2021-11-30 04:00] VITALS: BP 148/95
[2021-11-30] MEDS: BLOOD SUGAR DIAGNOSTIC STRIP TEST SCH ×2 (06:46→12:03)
[2021-11-30] MEDS: SUCRALFATE 1 G/10 ML UDC PO SCH ×2 (06:46→12:02)
[2021-11-30] MEDS: PANTOPRAZOLE 40MG DR TABLET PO SCH ×2 (06:46→12:05)
[2021-11-30] MEDS: INSULIN LISPRO 100 UNITS/ML SUBCUT SCH ×2 (07:00→14:52)
[2021-11-30 08:00] VITALS: BP 152/95
[2021-11-30] MEDS: METOPROLOL TARTRATE 25MG TABLET PO SCH (09:11)
[2021-11-30] MEDS: COLCHICINE 0.6MG TABLET PO SCH (09:12)
[2021-11-30] MEDS: ASPIRIN 81MG TABLET PO SCH (09:12)
[2021-11-30] MEDS: CLOPIDOGREL 75MG TABLET PO SCH (09:12)
[2021-11-30] MEDS: AMLODIPINE 10MG TABLET PO SCH (09:12)
[2021-11-30 12:00] VITALS: BP 129/84
[2021-11-30] MEDS ORDERED: CLOP75TA15 PO (13:50)
[2021-11-30] MEDS ORDERED: METO25TA6 PO (13:50)
[2021-11-30] MEDS ORDERED: AMLO10TA80 PO (13:50)
[2021-11-30] MEDS ORDERED: SUCR1TAB30 MT (13:50)
[2021-11-30] MEDS ORDERED: PANT40TA51 PO (13:50)
[2021-11-30] MEDS ORDERED: ASPI-1497 MT (13:50)
[2021-11-30] MEDS ORDERED: LIP40 PO (13:50)
[2021-11-30 15:27] VITALS: BP 149/88
[2021-11-30 15:37] VITALS: BP 149/88
[2021-12-06] MEDS ORDERED: ASPIRIN 81MG TABLET PO SCH (09:00)
== END 2021-11-30 17:00 | disposition home or self-care (01) | DRG 174 ==
LOC: ER 12:07 → CVICU 14:43 → 6WST 11-24 17:07
PROVIDERS: ADMIT Internal Medicine; ATTEND Internal Medicine
PROC: 027034Z Dilation of Coronary Artery, One Artery with Drug-eluting Intraluminal Device, Percutaneous Approach (ICD-10-PCS; principal; 2021-11-21)
PROC: 4A023N7 Measurement of Cardiac Sampling and Pressure, Left Heart, Percutaneous Approach (ICD-10-PCS; 2021-11-21)
PROC: B211YZZ Fluoroscopy of Multiple Coronary Arteries using Other Contrast (ICD-10-PCS; 2021-11-21)
PROC: 5A09357 Assistance with Respiratory Ventilation, Less than 24 Consecutive Hours, Continuous Positive Airway Pressure (ICD-10-PCS; 2021-11-21)
PROC: BD11ZZZ Fluoroscopy of Esophagus (ICD-10-PCS; 2021-11-24)
PROC: 0DB58ZX Excision of Esophagus, Via Natural or Artificial Opening Endoscopic, Diagnostic (ICD-10-PCS; 2021-11-27)
DX: I21.19 ST elevation (STEMI) myocardial infarction involving other coronary artery of inferior wall (principal); J96.01 Acute respiratory failure with hypoxia; I50.23 Acute on chronic systolic (congestive) heart failure; I31.9 Disease of pericardium, unspecified; K22.10 Ulcer of esophagus without bleeding; K22.2 Esophageal obstruction; I16.0 Hypertensive urgency; I25.10 Atherosclerotic heart disease of native coronary artery without angina pectoris; I11.0 Hypertensive heart disease with heart failure; E11.65 Type 2 diabetes mellitus with hyperglycemia; F10.21 Alcohol dependence, in remission; F12.90 Cannabis use, unspecified, uncomplicated; R59.0 Localized enlarged lymph nodes; F17.210 Nicotine dependence, cigarettes, uncomplicated; J43.9 Emphysema, unspecified; Z20.822 Contact with and (suspected) exposure to COVID-19; Z60.2 Problems related to living alone; J98.11 Atelectasis; K28.9 Gastrojejunal ulcer, unspecified as acute or chronic, without hemorrhage or perforation; K29.70 Gastritis, unspecified, without bleeding; K29.80 Duodenitis without bleeding; Z79.84 Long term (current) use of oral hypoglycemic drugs; Z79.899 Other long term (current) drug therapy; Z71.6 Tobacco abuse counseling; K22.9 Disease of esophagus, unspecified
CPT/HCPCS: 36415; 36600; 71045; 71275; 74176; 74220; 80048; 80053; 80305; 80320; 82375; 82805; 82962; 83036; 83880; 84484; 85018; 85025; 85347; 85651; 86141; 87426; 88305; 90732; 92610; 92928; 93005; 93306; 93458; 93970; 94618; 94640; 94660; 94664; 97116; 97162; 97535; 99291; C1725; C1769; C1874; C1887; C9113; C9803; J0360; J1100; J1200; J1644; J1815; J1940; J2250; J2270; J2405; J2704; J2765; J3010; J3490; J7030; J7517; Q9967; A4315; G0480

== ENCOUNTER 2021-12-13 23:37 | Emergency (ER) | payer OTHER ==
[~2021-12-13] VITALS: Ht 185.4 cm; Wt 51.6 kg
[~2021-12-13 23:37] MED LIST changes: +ALBU90AE2 INH; +AMLO10TA80 PO; +ASPI-1497 MT; +CLOP75TA15 PO; +FLUT1BLS3 INH; -HEPARIN 1000 UNITS/ML 10ML ONE; +LIP40 PO; +METO25TA6 PO; +PANT40TA51 PO; +SUCR1TAB30 MT
[2021-12-14] MEDS ORDERED: ASPIRIN 81MG TABLET PO ONE (01:15)
[2021-12-14 01:29] LABS: BASOPHILS % 0.9 % (0.0-2.0); EOSINOPHILS % 1.9 % (0.0-5.0); HEMATOCRIT. 34.5 % (42.0-52.0); HEMOGLOBIN. 11.8 g/dL (14.0-18.0); LYMPHOCYTES % 15.8 % (20.0-50.0); MEAN CORPUSCULAR HEMOGLOBIN 29.7 pg (28.0-32.0); MEAN CORPUSCULAR VOLUME 86.8 fL (80.0-94.0); MONOCYTES % 11.6 % (2.0-8.0); NEUTROPHILS % 69.8 % (40.0-76.0); PLATELET 313 x1000/uL (130-400); RED BLOOD CELL COUNT 3.98 mill/uL (4.7-6.1); RED CELL DISTRIBUTION WIDTH 13.2 % (11.6-14.6)
[2021-12-14 01:37] LABS: CHLORIDE 95 mEq/L (98-107)
[2021-12-14 01:46] LABS: ETHANOL BLOOD < 10 mg/dL
[2021-12-14] MEDS ORDERED: MORPHINE SULFATE 4 MG/ML CPJ (NOT FOR IM USE) IV ONE (02:15)
[2021-12-14 04:12] VITALS: BP 157/101
== END 2021-12-14 04:14 | disposition short-term general hospital (02) ==
LOC: ER 23:37
DX: R07.89 Other chest pain (principal); R04.2 Hemoptysis; R91.8 Other nonspecific abnormal finding of lung field; J44.9 Chronic obstructive pulmonary disease, unspecified; I11.0 Hypertensive heart disease with heart failure; I50.9 Heart failure, unspecified; F17.210 Nicotine dependence, cigarettes, uncomplicated; Z20.822 Contact with and (suspected) exposure to COVID-19; Z98.61 Coronary angioplasty status
CPT/HCPCS: 36415; 71045; 71250; 80053; 80320; 83880; 84484; 85025; 87426; 93005; 96374; 99285; C9803; J2270; G0480